=== PATIENT | female | born 1985 ===

== ENCOUNTER 2018-04-20 09:48 | Outpatient (CLI) | payer SELFPAY | END 2018-04-20 09:49 | disposition home or self-care (01) | LOC: C.LAB 09:48 | DX: Z30.09 Encounter for other general counseling and advice on contraception (principal) ==

== ENCOUNTER 2018-04-20 09:53 | Outpatient (CLI) | payer SELFPAY | END 2018-04-20 09:54 | disposition home or self-care (01) | LOC: C.LAB 09:53 | DX: E78.2 Mixed hyperlipidemia (principal) ==